=== PATIENT | male | born 1940 | race Caucasian/White ===

== ENCOUNTER 2019-04-27 05:16 | Observation (INO) | payer MEDICARE, OTHER ==
[2019-04-27] MEDS: CEFAZOLIN 2 GM/50 ML (PMX) 50 ML IVPB (06:42)
[2019-04-27] MEDS ORDERED: METOPROLOL 5 MG INJ (07:00)
[2019-04-27] MEDS ORDERED: SEVOFLURANE 15 MIN (07:00)
[2019-04-27] MEDS ORDERED: MIDAZOLAM 1 MG/ML 2 ML INJ (07:06)
[2019-04-27] MEDS ORDERED: GELATIN SIZE 100 SPONGE (07:54)
[2019-04-27] MEDS: BUPIVACAINE 0.25% (MPF) 30 ML INJ (07:54)
[2019-04-27] MEDS ORDERED: THROMBIN 5000 UNIT VIAL (07:54)
[2019-04-27] MEDS: POLYMYXIN/BACITRACIN 1L IRRIG (07:54)
[2019-04-27] MEDS ORDERED: hydrALAzine 20 MG INJ (08:08)
[2019-04-27] MEDS ORDERED: FUROSEMIDE 20 MG INJ (09:13)
[2019-04-27] MEDS ORDERED: ETOMIDATE 20 MG INJ (09:54)
[2019-04-27] MEDS ORDERED: ONDANSETRON 4 MG INJ (09:54)
[2019-04-27] MEDS ORDERED: LIDOCAINE 2% (SDV) 5 ML INJ (09:54)
[2019-04-27] MEDS ORDERED: ROCURONIUM 50 MG INJ (09:54)
[2019-04-27] MEDS ORDERED: GLYCOPYRROLATE 0.4 MG INJ (10:19)
[2019-04-27] MEDS ORDERED: NEOSTIGMINE 3 MG/3 ML SYRINGE (10:19)
[2019-04-27] MEDS: HYDROmorphONE 1 MG/5 ML IV SYRINGE IV ×3 (10:44→11:01)
[2019-04-27] MEDS ORDERED: HYDROmorphONE 0.2 MG/ML PCA (10:58)
[2019-04-27] MEDS ORDERED: ACETAMINOPHEN 325 MG TAB PO (11:00)
[2019-04-27] MEDS ORDERED: METOCLOPRAMIDE 10 MG INJ IV (11:00)
[2019-04-27] MEDS ORDERED: NALOXONE (0.4 MG/ML) INJ IV (11:00)
[2019-04-27] MEDS ORDERED: ZOLPIDEM 5 MG TAB PO (11:00)
[2019-04-27] MEDS ORDERED: HYDROCODONE/APAP (5/325) TAB PO ×2 (11:00)
[2019-04-27] MEDS ORDERED: NACL 0.9% 3 ML SYG IV (11:00)
[2019-04-27] MEDS ORDERED: TRIMETHOBENZAMIDE 100 MG/ML VIAL IM (11:00)
[2019-04-27] MEDS ORDERED: DIPHENHYDRAMINE 50 MG INJ IV (11:00)
[2019-04-27] MEDS ORDERED: LABETALOL HCL 20MG INJ IV (11:00)
[2019-04-27] MEDS ORDERED: DIAZEPAM 5 MG/ML SYG IM (11:00)
[2019-04-27] MEDS ORDERED: DIPHENHYDRAMINE 50 MG CAP PO (11:00)
[2019-04-27] MEDS ORDERED: DIAZEPAM 5 MG TAB PO (11:00)
[2019-04-27] MEDS ORDERED: MEPERIDINE 25 MG INJ IV (11:00)
[2019-04-27] MEDS ORDERED: hydrALAzine 20 MG INJ IV (11:00)
[2019-04-27] MEDS: FENTAnyl 50 MCG/ML VIAL IV (11:07)
[2019-04-27] MEDS: HYDROmorphONE 0.2 MG/ML PCA IV (11:17)
[2019-04-27] MEDS: ONDANSETRON 4 MG INJ IV ×2 (11:43→12:43)
[2019-04-27] MEDS: DEXTROSE 5%-0.45% NACL 1,000 ML IV ×2 (12:46→23:14)
[2019-04-27] MEDS: CEFAZOLIN 1 GM/50 ML (PMX) 50 ML IVPB ×3 (13:35→23:14)
[2019-04-27] MEDS: PROCHLORPERAZINE 10 MG TAB PO (13:38)
[2019-04-27] MEDS: CEPASTAT LOZENGE MT (17:20)
[2019-04-27] MEDS ORDERED: MOMETASONE 0.24 GM INHALER INH (21:00)
[2019-04-27] MEDS: AZELASTINE 0.05% 6 ML OPH BOTH EYES (21:00)
[2019-04-27] MEDS: RANITIDINE 150 MG TAB PO (21:28)
[2019-04-27] MEDS: MOMETASONE NASAL (21:29)
[2019-04-28] MEDS: CEFAZOLIN 1 GM/50 ML (PMX) 50 ML IVPB (05:00)
[2019-04-28 05:10] LABS: HEMATOCRIT 40.2 % (42.0-52.0)
[2019-04-28 05:36] LABS: ANION GAP 6 (5-13); BLOOD UREA NITROGEN 8 mg/dl (7-20); CALCIUM 8.6 mg/dl (8.4-10.2); CARBON DIOXIDE 31 mmol/L (21-31); CHLORIDE 105 mmol/L (97-110); CREATININE 0.93 mg/dl (0.61-1.24); GLUCOSE 139 mg/dl (70-220); POTASSIUM 4.4 mmol/L (3.5-5.1); SODIUM 142 mmol/L (135-144)
[2019-04-28] MEDS ORDERED: BETHANECHOL 25 MG TAB PO (08:00)
[2019-04-28] MEDS: AZELASTINE 0.05% 6 ML OPH BOTH EYES ×2 (09:00→21:00)
[2019-04-28] MEDS: DEXTROSE 5%-0.45% NACL 1,000 ML IV ×2 (09:00→19:00)
[2019-04-28] MEDS: DOCUSATE SODIUM 100 MG CAP PO ×2 (09:23→21:08)
[2019-04-28] MEDS: ASCORBIC ACID 500 MG TAB PO ×2 (09:23→21:08)
[2019-04-28] MEDS: BETHANECHOL 25 MG TAB PO (09:23)
[2019-04-28] MEDS: FERROUS SULFATE (EC) 325 MG TAB PO ×3 (09:23→21:08)
[2019-04-28] MEDS: RANITIDINE 150 MG TAB PO ×2 (09:23→21:08)
[2019-04-28] MEDS: MOMETASONE NASAL ×2 (09:24→21:10)
[2019-04-28] MEDS: FLUTICASONE/VILANTEROL 200-25 INH DEVICE INH (09:24)
[2019-04-28] MEDS: traMADol 50 MG TAB PO ×2 (11:49→17:58)
[2019-04-29] MEDS: DEXTROSE 5%-0.45% NACL 1,000 ML IV ×2 (05:00→15:00)
[2019-04-29] MEDS: AZELASTINE 0.05% 6 ML OPH BOTH EYES (09:00)
[2019-04-29] MEDS: MOMETASONE NASAL (09:16)
[2019-04-29] MEDS: FLUTICASONE/VILANTEROL 200-25 INH DEVICE INH (09:17)
[2019-04-29] MEDS: DOCUSATE SODIUM 100 MG CAP PO (09:17)
[2019-04-29] MEDS: FERROUS SULFATE (EC) 325 MG TAB PO ×2 (09:17→13:00)
[2019-04-29] MEDS: RANITIDINE 150 MG TAB PO (09:17)
[2019-04-29] MEDS: ASCORBIC ACID 500 MG TAB PO (09:17)
[2019-04-29] MEDS: ONDANSETRON 4 MG INJ IV ×2 (10:28→15:17)
[2019-04-29] MEDS: AL HYDROX/MG HYDROX/SIMETH 30 ML CUP PO (10:35)
[2019-04-29] MEDS: BISACODYL 10 MG SUPP PR (12:15)
[2019-04-29] MEDS: NA PHOSPHATE/BIPHOS 133 ML ENEMA PR (14:36)
== END 2019-04-29 16:02 | disposition home or self-care (01) ==
LOC: REC 05:16 → MS1 12:16
DX: M48.061 Spinal stenosis, lumbar region without neurogenic claudication (principal); J45.40 Moderate persistent asthma, uncomplicated; M10.00 Idiopathic gout, unspecified site; N20.0 Calculus of kidney; C61 Malignant neoplasm of prostate; J30.9 Allergic rhinitis, unspecified
CPT/HCPCS: 63047; 72020; 80048; 85014; 85018; 86850; 86900; 86901; 86920; 87086; 88304; 88311; 97116; 97161; 97162; 97530